=== PATIENT | male | born 1990 | race Caucasian/White ===

== ENCOUNTER → 2020-08-19 13:13 | Outpatient (CLI) | payer OTHER, SELFPAY ==
--- NOTE | ~2020-08-19 | XR_ITS ---
XR knee RT 3V DATE: 08/19/2020 13:27 INDICATION: Right knee pain TECHNIQUE: Standing AP, lateral views. [place] view. COMPARISON: 08/24/2014 right knee FINDINGS: No fracture or dislocation or joint effusion. No periosteal reaction or bone destruction. N o radiopaque intra-articular loose body or chondrocalcinosis. Joint spaces are preserved. IMPRESSION: Negative Reviewed, dictated and finalized at location A. 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
== END ==
PROVIDERS: PCP Family Medicine; Visit Provider Nurse Practitioner Family
DX: M25.569 Pain in unspecified knee (principal)
CPT/HCPCS: 73562

== ENCOUNTER → 2020-08-26 07:30 | Outpatient (CLI) | payer OTHER, SELFPAY ==
--- NOTE | ~2020-08-26 | MR_ITS ---
EXAMINATION: MR knee RT wo con DATE: 08/26/2020 08:12 INDICATION: One month of anterior right knee pain after playing sports. TECHNIQUE: Magnetic resonance imaging (MRI) of the right knee was performed without intravenous contr ast. Sequences included coronal PD-weighted FSE, coronal PD-weighted FS FSE, sagittal T2-weighted FS E, sagittal PD-weighted FS FSE and axial PD weighted fat saturated FSE. COMPARISON: None. FINDINGS: Medial compartment: Medial meniscus is normal. Articular cartilage is normal. Lateral compartment: Lateral meniscus is normal. Articular cartilage is normal. Patellofemoral compartment: Articular cartilage is normal. Ligaments and tendons: Anterior and posterior cruciate ligaments are normal. The medial collateral ligament and fibular meliton ateral ligament complex are normal. The extensor mechanism is normal. The visualized medial and later al hamstring tendons as well as the iliotibial band are normal. Fluid: Physiologic amount of fluid in the joint space. No loose osteochondral bodies identified. Osseous/other: Normal marrow signal. No fracture or pathologic marrow replacing process. There is mild edema in the superficial suprapatellar fat pad which can be seen with fat pad impingement syndrome. IMPRESSION: 1. Mild edema in the superficial suprapatellar fat pad which can be seen with fat pad impingement syn drome. Otherwise normal right knee MRI. Reviewed, dictated and finalized at location B. R DRIVER IMPRESSION: 1. Mild edema in the superficial suprapatellar fat pad which can be seen with f at pad impingement syndrome. Otherwise normal right knee MRI.
== END ==
PROVIDERS: PCP Family Medicine; Visit Provider Nurse Practitioner Family
DX: M25.569 Pain in unspecified knee (principal)
CPT/HCPCS: 73721

== ENCOUNTER 2020-12-26 09:18 | Emergency (ER) | payer OTHER, SELFPAY ==
[2020-12-26 09:30] VITALS: BP 140/78; PULSE 83; RESP 16; TEMP 37.2; O2SAT 99
--- NOTE | 2020-12-26 10:08 | ED.EYEPROB ---
HPI - Eye Problem General Chief complaint: Eye Problems Stated complaint: left eye injury Time Seen by Provider: 12/26/20 10:08 Source: patient, RN notes reviewed and old records reviewed Mode of arrival: ambulatory Limitations: no limitations History of Present Illness HPI Narrative: 30 year old male who [facility] with complaint of pain to his left eye since last 10 p.m when his infant son poked him in his left eye. Patient states that he has some pain ,redness and increase watering to his left eye. He states that it feels like he has a scratch on his eye, has been using OTC saline eye drops. Patient denies acute sharp pain to his left eye but admits to discomfort rates it 6/10 and is continuous. MD chief complaint: eye pain, eye redness and eye injury Onset (ago): day(s) (1) Onset description: sudden Duration: constant Location: left eye Eye Symptoms: burning, redness, pain and other (increase watering of eye) Place: home Related Data Allergies Allergy/AdvReac Type Severity Reaction Status Date / Time cefaclor Allergy Unknown Hives / Verified 12/26/20 09:58 Red Face Cephalosporins Allergy Unknown Rash Verified 12/26/20 09:58 Review of Systems Review of Systems: Narrative: CONSTITUTIONAL: Denies fever, chills, or sweats. EYES: Denies acute visual changes some blurring to left eye,some redness to left sclera with increased watering and discomfort after being poked in his left eye ENT: Denies rhinorrhea, congestion, sore throat, or otalgia. CARDIOVASCULAR: Denies chest pain, palpitations, or edema. RESPIRATORY: Denies cough or dyspnea. GASTROINTESTINAL: Denies abdominal pain, nausea, vomiting, or diarrhea. GENITOURINARY: Denies dysuria or hematuria. SKIN: Denies rash or itching. MUSCULOSKELETAL: Denies back pain, joint pain, or myalgia. NEUROLOGIC: Denies headache, numbness, or weakness. PSYCHIATRIC: Denies anxiety or depression. All systems reviewed & are unremarkable except as noted in HPI and below PMFSH Past Medical History Medical History Acute pharyngitis, unspecified (09/24/17) BMI 25.0-25.9,adult Chronic bilateral low back pain with bilateral sciatica Dietary counseling and surveillance (09/19/16) Dysuria Ganglion, left wrist High risk sexual behavior Juvenile idiopathic scoliosis, thoracolumbar region Other chronic pain Family History Family History Grandparent Diabetes mellitus Father No problems noted. Mother No problems noted. 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 There is no relevant family history pertinent to the presenting complaint Exam Narrative: Exam Narrative: GENERAL: Well-appearing, well-nourished, and in no acute distress. HEAD: Normocephalic, atraumatic. EYES: PERRLA and EOMI. some sclera redness left eye, increased watering and discomfort, denies any sharp pain to his left eye, visual acuity right eye,20/20, left eye 20/50 without corrective lenses, does not wear contacts ENT: Nares clear, no rhinorrhea or epistaxis. Mucous membranes moist. NECK: Supple. no lymphadenopathy CHEST: Clear to auscultation. No respiratory distress. SAO2 99% on room air HEART: Regular rate and rhythm. No murmur heard. Normal peripheral pulses. ABDOMEN: Soft, nontender, nondistended, normal active bowel sounds. EXTREMITIES: Normal range of motion. No edema
== END 2020-12-26 10:33 | disposition home or self-care (01) ==
PROVIDERS: Emergency Provider Registered Nurse; PCP Family Medicine
DX: S05.02XA Injury of conjunctiva and corneal abrasion without foreign body, left eye, initial encounter (principal); W50.0XXA Accidental hit or strike by another person, initial encounter
CPT/HCPCS: 99213; A9270; G0463

== ENCOUNTER → 2021-04-19 08:53 | Outpatient (CLI) | payer OTHER, SELFPAY ==
--- NOTE | ~2021-04-19 | XR_ITS ---
EXAMINATION: XR clavicle LT INDICATION: Left shoulder pain TECHNIQUE: Two views of the left clavicle are obtained. COMPARISON: None available FINDINGS: There is no fracture, dislocation, or subluxation. The bones, soft tissues, and joint space s are normal. IMPRESSION: 1. No acute osseous abnormality. Reviewed, dictated and finalized at location A.
== END ==
PROVIDERS: PCP Family Medicine; Visit Provider Physician Assistant Medical
DX: S49.92XA Unspecified injury of left shoulder and upper arm, initial encounter (principal)
CPT/HCPCS: 73000

== ENCOUNTER → 2021-06-20 15:27 | Outpatient (CLI) | payer OTHER, SELFPAY ==
--- NOTE | ~2021-06-20 | MR_ITS ---
EXAMINATION: MR clavicle LT wo con DATE: 06/20/2021 16:31 INDICATION: Unspecified injury of the left shoulder with medial left clavicular pain post playing [employer] 4 months prior. TECHNIQUE: Magnetic resonance imaging (MRI) of the left clavicle was performed without intravenous co ntrast. A marker was placed over the site of pain. Sequences of the left clavicle included axial, sa gittal and coronal T1-weighted FSE, axial and coronal T2-weighted FS FSE, sagittal fluid sensitive FS E STIR and larger field of view coronal T1-weighted FSE of the bilateral clavicles were obtained. COMPARISON: None. FINDINGS: Bone alignment is normal and symmetric when comparing the bilateral clavicles on the larger field of view coronal images. Acromioclavicular joint and sternoclavicular joint spaces are normal and similar ly appears symmetric. No evident tear of the coracoclavicular ligaments. The visualized portion of th e left glenohumeral joint and glenoid labrum appear normal. Normal marrow signal with no fracture or reactive marrow edema. No bone erosions or periostitis. The musculature at the left shoulder includin g the clavicular insertion of the pectoralis major, deltoid, trapezius and subclavius muscles all rosie ear normal. Normal flow voids are seen in the left subclavian artery and vein which appear of normal caliber. Visualized portions of the left brachial plexus are unremarkable. Surrounding soft tissues a re unremarkable. No abnormal masses or fluid collections identified. No pathologically enlarged lymph adenopathy at the base of the neck, supraclavicular regions, superior mediastinum or bilateral axilla . IMPRESSION: 1. Normal MRI of the left clavicle. No etiology identified for reported pain along the medial aspect of the left clavicle. Reviewed, dictated and finalized at [facility]. 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 Normal MRI of the left clavicle. No etiology identified for reported pain al brday the medial aspect of the left clavicle.
== END ==
PROVIDERS: PCP Family Medicine; Visit Provider Nurse Practitioner Family
DX: S49.92XA Unspecified injury of left shoulder and upper arm, initial encounter (principal); X58.XXXA Exposure to other specified factors, initial encounter
CPT/HCPCS: 73218

== ENCOUNTER 2024-07-17 19:31 | Emergency (ER) | payer OTHER, SELFPAY ==
[2024-07-17 19:54] VITALS: BP 157/101; PULSE 99; RESP 20; TEMP 36.7; O2SAT 100
[2024-07-17] MEDS: ONDANSETRON INJ 4 MG/2 ML VIAL IV PUSH (20:57)
[2024-07-17] MEDS: GLUCAGON FOR INJ 1 MG VIAL 2 MG IV PUSH (20:59)
--- NOTE | 2024-07-17 21:27 | PC.NURSE ---
Patient successfully vomits up food bolus. Patient states he feels relief and no longer has sensation of a blockage. EDP aware.
--- NOTE | 2024-07-17 21:30 | ED_ITS ---
HPI - General Adult General Chief complaint: Unspecified Stated complaint: food bolus Time Seen by Provider: 07/17/24 20:28 History of Present Illness HPI narrative: Patient is a 33-year-old male who presents to the emergency department this evening complaining of an esophageal food bolus. States that he was eating chicken when this happened. Patient states that he has some scarring in his esophagus which causes him to have recurrent food boluses. She has tried to drink some fluids to help pass the food bolus with no success. Patient denies any active chest pain or shortness of breath. No additional symptoms or concerns at this time. Related Data Allergies Allergy/AdvReac Type Severity Reaction Status Date / Time cefaclor Allergy Unknown Hives / Verified 07/17/24 20:03 Red Face Cephalosporins Allergy Unknown Rash Verified 07/17/24 20:03 Review of Systems Review of Systems: All systems are reviewed and are negative unless stated otherwise in the HPI. [facility] Past Medical History Medical History Influenza A History of eustachian tube dysfunction Pre-syncope Adult BMI 26.0-26.9 kg/sq m BMI 27.0-27.9,adult Acute pharyngitis, unspecified (09/24/17) Chronic bilateral low back pain with bilateral sciatica Dietary counseling and surveillance (09/19/16) Dysuria Juvenile idiopathic scoliosis, thoracolumbar region Other chronic pain BMI 25.0-25.9,adult High risk sexual behavior Ganglion, left wrist Surgical History Surgical History H/O endoscopy Family History Family History Grandparent Diabetes mellitus Father Hypertension Mother Migraine Sibling MCL sprain of left knee Other Carcinoma of colon Cerebrovascular accident Social History Social History Smoking status: Never smoker Tobacco type: cigars Second hand tobacco smoke exposure: No Alcohol intake: current Drinks per week: 12 Substance use: never Substance use type: does not use Lack of Transportation: No Lack of Food: Never True Current Housing: I Have Housing Concerned About Future Housing: No Difficulty Paying Gas/Electric Bills: No Difficulty Paying for Meds: No Currently Unemployed: No Education: Associate Degree Difficulty w/ Childcare or Family Care: No Living arrangements: with family Additional living arrangements comments: Occupation/Education: occupation 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 HEENT: PERRL, no rhinorrhea, no post nasal drip, oropharynx clear. Neck: Trachea midline, no JVD, no lymphadenopathy. Cardiovascular: Regular rate and rhythm, no murmurs, rubs or gallops, no peripheral edema. Respiratory: Clear to auscultation bilaterally, no tachypnea, no wheezing, no rhonchi, no rubs, no respiratory distress. Abdomen: Soft, nontender, nondistended, no rebound, no guarding, no peritoneal signs. Musculoskeletal: No joint swelling or deformity, normal muscle tone. Skin: No rashes or petechia, no signs of infection. Psychiatric: Alert and oriented, normal behavior and judgment for situation. Neurological: Alert and oriented to person, place, and time. Follows all commands. No focal deficits, speech is clear and fluent. Course Vital Signs Vital signs: Vital Signs Temperature 98.0 F 07/17/24 19:54 Pulse Rate 99 07/17/24 19:54 Respiratory Rate 20 07/17/24 19:54 Blood Pressure 157/101 H 07/17/24 19:54 Pulse Oximetry 100 07/17/24 19:54 Oxygen Delivery Room Air 07/17/24 19:54 Temperature 98.0 F 07/17/24 19:54 Pulse Rate 99 07/17/24 19:54 Respiratory Rate 20 07/17/24 19:54 Blood Pressure 157/101 H 07/17/24 19:54 Pulse Oximetry 100 07/17/24 19:54 Oxygen Delivery Room Air 07/17/24 19:54 Medical Decision Making MDM Narrative Medical decision making narrative: The patient was evaluated by myself in the emergency department. History is obtained from patient who is an independent historian and physical exam was performed. External medical records were reviewed at this time. IV was established and pertinent tests were ordered. Patient was administered 2 mg of IV glucagon he and 4 mg of IV Zofran. Gluconate made the patient extremely nauseous and patient ended up vomiting the food bolus. Patient states that he feels significantly better. Is able to tolerate p.o. intake without any difficulty. Differential diagnosis considerations include esophageal obstruction, esophagitis, achalasia. Comorbidities impacting this visit include history of recurrent esophageal food boluses. I have evaluated and discussed social determinants of health with the patient that could potentially impact subsequent diagnosis and treatment plans. On repeat assessment of the patient, reevaluation revealed that the patient is doing well and is in no acute distress. Patient symptoms have improved since he arrived to our emergency department. Repeat vital signs were all reviewed and noted to be stable. Differential diagnosis and treatment plan were discussed with the patient at bedside. Patient agrees with discussion and after shared medical decision making agrees with discharge. All questions were answered to the patient's satisfaction. Patient will follow up with his PCP in 3-5 days. Patient was provided with strict return precautions and instructed to return to the emergency department if any new or worsening symptoms develop. The patient was discharged in stable condition. Vital Signs Vital Signs: Vital Signs Temperature 98.0 F 07/17/24 19:54 Pulse Rate 99 07/17/24 19:54 Respiratory Rate 20 07/17/24 19:54 Blood Pressure 157/101 H 07/17/24 19:54 Pulse Oximetry 100 07/17/24 19:54 Oxygen Delivery Room Air 07/17/24 19:54 Temperature 98.0 F 07/17/24 19:54 Pulse Rate 99 07/17/24 19:54 Respiratory Rate 20 07/17/24 19:54 Blood Pressure 157/101 H 07/17/24 19:54 Pulse Oximetry 100 07/17/24 19:54 Oxygen Delivery Room Air 07/17/24 19:54 Discharge Plan Discharge Clinical Impression: Esophageal obstruction due to food impaction Patient Disposition: Home, Self-Care Condition: Improved Instructions: Antibiotic Form Additional Instructions: Please follow-up with your family doctor within the next 3-5 days. Return to the emergency department if any new or worsening symptoms develop. Patient Language: Maori Follow-up/Referrals: Mauricio Granados MD [Primary Care Provider] - 3 Days Time of Disposition: 21:31
[2024-07-17 21:39] VITALS: BP 136/78; PULSE 89; RESP 16; O2SAT 100
== END 2024-07-17 21:39 | disposition home or self-care (01) ==
PROVIDERS: Emergency Provider Emergency Medicine; PCP Family Medicine
DX: T18.128A Food in esophagus causing other injury, initial encounter (principal); W44.F3XA Food entering into or through a natural orifice, initial encounter
CPT/HCPCS: 96374; 96375; 99284; J1610; J2405

== ENCOUNTER 2024-09-22 00:45 | Day surgery (SDC) | payer OTHER, SELFPAY ==
[2024-09-16 12:06] VITALS: BMI 25.8
--- OUTSIDE RECORDS SUMMARY | 2024-09-22 00:47 | XMS_ITS | Clinical Summary ---
Author Organization [facility] Address [address] [place] [address] Phone Care Team Providers Care Manager Division Name Role Phone Mauricio Granados MD Primary Care Provider [phone] Allergies Active Allergy Reactions Criticality Noted Date Comments Cefaclor Hives 05/20/2015 Medications sucralfate (CARAFATE) 1 GM Tablet Take 1 Tab by mouth 4 times daily. Dissolve tablet in 4 ounces of water and swallow before meals and at HS. 60 Tab 3 05/21/2015 Active esomeprazole (NEXIUM) 20 MG CAPSULE DELAYED RELEASE Take 20 mg by mouth as needed. 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 Not on file Not on file Not on file Last Filed Vital Signs Vital Sign Reading Time Taken Comments Blood Pressure 108/78 05/25/2015 9:38 AM PRESS TENDER STAR SIGNAL Pulse 97 05/20/2015 10:56 PM PRESS TENDER [employer]AR SIGNAL Temperature 36 C (96.8 F) 05/25/2015 9:38 AM PRESS TENDER STAR SIGNAL Respiratory Rate 16 05/25/2015 9:38 AM PRESS TENDER STAR SIGNAL Oxygen Saturation 100% 05/25/2015 9:38 AM PRESS TENDER STAR SIGNAL Inhaled Oxygen Concentration - - Weight 74.8 kg (165 lb) 05/24/2015 1:00 PM PRESS TENDER [employer] Height 182.9 cm (6') 05/24/2015 1:00 PM PRESS TENDER STAR SIGNAL Body Mass Index 22.38 05/24/2015 1:00 PM PRESS TENDER STAR SIGNAL Plan of Treatment Health Maintenance Due Date Last Done Comments Hepatitis C Virus (HCV) Screening 1992 TdaP Immunization 1992 Hepatitis B Immunization (1 of 3 - 19+ 3-dose series) 09/07/2011 Influenza Immunization (#1) 2024 SARS-COV-2 Immunization ( - 2023- season) 2024 Respiratory Syncytial Virus (RSV) Immunization (Adult) (1 - 1-dose 75+ series) 09/07/2067 Meningococcal Immunization (ACWY) Aged Out No longer eligible based on patient's age to complete this topic Pneumococcal Immunization Combined Aged Out No longer eligible based on patient's age to complete this topic Rotavirus Immunization Aged Out No lo nger eligible based on patient's age to complete this topic Care Teams Manager Division Relationship Specialty Start Date End Date Mauricio Granados MD [address] [place] [address] PCP - General Family Medicine 05/21/15
--- OUTSIDE RECORDS SUMMARY | 2024-09-22 00:48 | XMS_ITS | Clinical Summary ---
Author Organization [facility] Address [address] [place] [address] Care Team Providers Care Director Of Recruitment Name Role Phone Mauricio Granados MD Primary Care Provider [phone] Source Comments [facility],non-owned Affiliates and Associated Physician Practices is amultiple site organization consisting of ambulatory clinics and hospital sitesin [place], [place], [place] and [place]. This disclosure is being madepursuant to the Care Everywhere program and may not contain all information available regarding this patient. Last updated 18.[facility] [employer] Allergies Active Allergy Reactions Criticality Noted Date Comments Cefaclor Urticaria Medium 09/07/2017 Medications Be aware that medications may not be up to date on this document. Always verify current medications with the patient. No known medications Social History Tobacco Use Types Packs/Day Years Used Date Smoking Tobacco: Never Smokeless Tobacco: Never Sex and Gender Information Value Date Recorded Sex Assigned at Not on file Gender Identity Not on file Sexual Orientation Not on file Last Filed Vital Signs Vital Sign Reading Time Taken Comments Blood Pressure 132/84 09/07/2017 9:30 AM CDT Pulse 82 09/07/2017 9:30 AM CDT Temperature 37.2 C (99 F) 09/07/2017 9:30 AM CDT Respiratory Rate 16 09/07/2017 9:30 AM CDT Oxygen Saturation 97% 09/07/2017 9:30 AM CDT Inhaled Oxygen Concentration - - Weight 77.1 kg (170 lb) 09/07/2017 9:30 AM CDT Height 180.3 cm (5' 11 ) 09/07/2017 9:30 AM CDT Body Mass Index 23.71 09/07/2017 9:30 AM CDT Plan of Treatment Health Maintenance Due Date Last Done Comments HIV SCREENING 09/07/2007 HEPATITIS C SCREENING 09/02/2010 DTAP/TDAP/TD VACCINES (1 - Tdap) 09/07/2011 HEPATITIS B VACCINE (1 of 3 - 19+ 3-dose series) 09/07/2011 COVID-19 VACCINE (1 - 2023-2 5 season) 2024 INFLUENZA VACCINE (#1) 2024 DEPRESSION SCREENING 06/25/2024 ZOSTER VACCINE (1 of 2) 2042 HIB VACCINE Aged Out No longer eligi ble based on patient's age to complete this topic HPV VACCINE Aged Out No longer eligi ble based on patient's age to complete this topic MENINGOCOCCAL (Group B) VACC INE SHARED DECISION-MAKING Aged Out No longer eligibl e based on patient's age to complete this topic MENINGOCOCCAL GROUPS A/C/Y/W VACCINE Aged Out No longer eligible b ased on patient's age to complete this topic PNEUMOCOCCAL VACCINE Aged Out No long er eligible based on patient's age to complete this topic Care Teams Director Of Recruitment Relationship Specialty Start Date End Date Mauricio Granados MD [address] [place] [address] PCP - General Family Medicine 09/07/17
[2024-09-22 12:02] VITALS: BP 133/98; PULSE 77; RESP 20; TEMP 36.4; O2SAT 100; BMI 26.1
[2024-09-22] MEDS: LACTATED RINGERS 1,000 ML 150 ML IV CONT (12:17)
--- NOTE | 2024-09-22 12:33 | WPDANESEPPF ---
Anes - Initial Pre Proc Eval Procedure: Operation Date: 09/22/24 13:00 Proposed Procedures p Esophagogastroduodenoscopy EGD - Evens Bhakta MD Date/Time: 09/22/24 12:33 Surgeon: Evens Bhakta MD Pre Op Diagnosis: disease of esophagus Patient Data Age: 34 Gender: M Height: 1.8 m Weight: 84.9 kg Last Vital Signs Temp 97.5 F L 09/22/24 12:02 Pulse 77 09/22/24 12:02 Resp 20 09/22/24 12:02 BP 133/98 H 09/22/24 12:02 Pulse Ox 100 09/22/24 12:02 O2 Del Method Room Air 09/22/24 12:02 Allergies Allergy/AdvReac Type Severity Reaction Status Date / Time cefaclor Allergy Unknown Hives / Verified 09/22/24 12:01 Red Face Cephalosporins Allergy Unknown Rash Verified 09/22/24 12:01 Home Medications ?Medication ?Instructions ?Recorded ?Confirmed ?Type No Home Medications 07/21/24 09/16/24 History Patient hx anesthesia problems: none Family hx anesthesia problems: none Results Review: All pre-operative results and documents have been reviewed as part of the pre-operative evaluation. COUNT INCLUDES THE [facility] Past Medical History Medical History Influenza A History of eustachian tube dysfunction Pre-syncope Adult BMI 26.0-26.9 kg/sq m BMI 27.0-27.9,adult Acute pharyngitis, unspecified (09/24/17) Chronic bilateral low back pain with bilateral sciatica Dietary counseling and surveillance (09/19/16) Dysuria Juvenile idiopathic scoliosis, thoracolumbar region Other chronic pain BMI 25.0-25.9,adult High risk sexual behavior Ganglion, left wrist Surgical History Surgical History H/O endoscopy Family History Family History Grandparent Diabetes mellitus Father Hypertension Mother Migraine Sibling MCL sprain of left knee Other Carcinoma of colon Cerebrovascular accident Social History Social History Smoking status: Never smoker Tobacco type: cigars Second hand tobacco smoke exposure: No Alcohol intake: current Drinks per week: 6 Substance use: never Substance use type: does not use Do You Feel Safe in your Home?: Yes Lack of Transportation: No Lack of Food: Never True Current Housing: I Have Housing Concerned About Future Housing: No Difficulty Paying Gas/Electric Bills: No Difficulty Paying for Meds: No Currently Unemployed: No Education: Associate Degree Difficulty w/ Childcare or Family Care: No Living arrangements: with family Additional living arrangements comments: with sp Occupation/Education: occupation 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 Gender identity (if verbalized by the patient): Male Sexual Orientation (if Verbalized by the Patient): Straight or Heterosexual Spiritual care concerns: No Agree to blood products: Yes Anes - Eval Final PreProcedure Day of Procedure 09/22/24 12:33 Patient weight: normal Lungs: normal air movement Airway: Mallampati scale class II Neurological: alert and oriented Last oral intake: >/= 8 hours ASA classification: II Emergent: no Anesthetic plan: proceed Anesthesia type and monitoring: general GIVS and standard monitoring Results Review: All pre-operative results and documents have been reviewed as part of the pre-operative evaluation. HTN not on meds currently, ETOH use 10-14 drinks/week. EGD for dysphagia. Informed Consent: The patient's anesthetic plan and its attendant risks and benefits were discussed with the patient/family/POA. Questions were solicited and answers provided to the satisfaction of the patient/family/POA.
--- NOTE | 2024-09-22 13:34 | P.HP_ITS ---
History of Present Illness History of Present Illness Consent: Risks, benefits, and alternatives have been discussed and questions answered. Patient agrees to proceed with procedure. Chief complaint: disease of esophagus Narrative: Dani Santiago is a 34 year old male with remoted h/o food bolus and now intermittent dysphagia, avoiding certain meals which is helping, currently not taking medication. Also had esophageal tear after choking about 2 years ago Review of Systems Review of Systems: All systems reviewed & are unremarkable except as noted in HPI and below PMFSH Past Medical History Medical History (Updated 09/22/24 @ 13:35 by Evens Bhakta MD) Dysphagia Influenza A History of eustachian tube dysfunction Pre-syncope Adult BMI 26.0-26.9 kg/sq m BMI 27.0-27.9,adult Acute pharyngitis, unspecified (09/24/17) Chronic bilateral low back pain with bilateral sciatica Dietary counseling and surveillance (09/19/16) Dysuria Juvenile idiopathic scoliosis, thoracolumbar region Other chronic pain BMI 25.0-25.9,adult High risk sexual behavior Ganglion, left wrist Surgical History Surgical History H/O endoscopy Family History Family History Grandparent Diabetes mellitus Father Hypertension Mother Migraine Sibling MCL sprain of left knee Other Carcinoma of colon Cerebrovascular accident Social History Social History Smoking status: Never smoker Tobacco type: cigars Second hand tobacco smoke exposure: No Alcohol intake: current Drinks per week: 6 Substance use: never Substance use type: does not use Do You Feel Safe in your Home?: Yes Lack of Transportation: No Lack of Food: Never True Current Housing: I Have Housing Concerned About Future Housing: No Difficulty Paying Gas/Electric Bills: No Difficulty Paying for Meds: No Currently Unemployed: No Education: Associate Degree Difficulty w/ Childcare or Family Care: No Living arrangements: with family Additional living arrangements comments: with sp Occupation/Education: occupation 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 Gender identity (if verbalized by the patient): Male Sexual Orientation (if Verbalized by the Patient): Straight or Heterosexual Spiritual care concerns: No Agree to blood products: Yes Meds Home Medications and Allergies Home Medications ?Medication ?Instructions ?Recorded ?Confirmed ?Type No Home Medications 07/21/24 09/16/24 History Allergies Allergy/AdvReac Type Severity Reaction Status Date / Time cefaclor Allergy Unknown Hives / Verified 09/22/24 12:01 Red Face Cephalosporins Allergy Unknown Rash Verified 09/22/24 12:01 Vital Signs Vital Signs - 24 hr 09/22/24 12:02 Temperature 97.5 F L Pulse Rate 77 Respiratory Rate 20 Blood Pressure 133/98 H Pulse Oximetry 100 Oxygen Delivery Room Air Exam Const: General: comfortable and no acute distress HENMT: Face/Nose/Sinus: Normal nares present Eyes: General: appearance normal, both eyes and all related structures Neck: Neck: no JVD Resp: Auscultation: clear to auscultation bilaterally Cardio: Rate: regular rate Rhythm: regular rhythm GI: Inspection: non-distended GI Palp: Yes Soft to palpation Skin: General skin exam: normal color Neuro: General: gait normal Speech: normal speech Extrem: General: normal to inspection Psych: Mental Status: mental status grossly normal Assessment and Plan Assessment and plan (1) Dysphagia: Code(s): R13.10 - Dysphagia, unspecified Status: Acute Assessment and Plan: egd with bx ? EoE
[2024-09-22 13:50] VITALS: BP 104/64; PULSE 79; RESP 18; O2SAT 100
[2024-09-22 14:00] VITALS: BP 121/75; PULSE 74; RESP 18; O2SAT 100
[2024-09-22 14:10] VITALS: BP 133/70; PULSE 75; RESP 17; O2SAT 100
== END 2024-09-22 14:20 | disposition home or self-care (01) ==
PROVIDERS: PCP Family Medicine; Visit Provider Internal Medicine Gastroenterology
PROC: 0DJ08ZZ Inspection of Upper Intestinal Tract, Via Natural or Artificial Opening Endoscopic (ICD-10-PCS; CPT 43239; principal; 2024-09-22 13:00)
DX: K20.90 Esophagitis, unspecified without bleeding (principal); M41.115 Juvenile idiopathic scoliosis, thoracolumbar region; G89.29 Other chronic pain; M54.42 Lumbago with sciatica, left side; M54.41 Lumbago with sciatica, right side; F17.290 Nicotine dependence, other tobacco product, uncomplicated; Z80.0 Family history of malignant neoplasm of digestive organs; Z82.49 Family history of ischemic heart disease and other diseases of the circulatory system
CPT/HCPCS: 43239; 88305; J2003; J2704; J7120

== ENCOUNTER 2024-11-04 12:34 | Emergency (ER) | payer OTHER, SELFPAY ==
[2024-11-04 12:44] VITALS: BP 134/93; PULSE 88; RESP 20; TEMP 37; O2SAT 99
--- OUTSIDE RECORDS SUMMARY | 2024-11-04 12:47 | XMS_ITS | Clinical Summary ---
Author Organization [facility] Address [address] [place] [address] Care Team Providers Care Aircraft Mechanic Structures Name Role Phone Mauricio Granados MD Primary Care Provider Source Comments [facility],non-owned Affiliates and Associated Physician Practices is amultiple site organization consisting of ambulatory clinics and hospital sitesin [place], [place], [place]. This disclosure is being madepursuant to the Care Everywhere program and may not contain all information available regarding this patient. Last updated 18.[facility] Allergies Active Allergy Reactions Criticality Noted Date Comments Cefaclor Urticaria Medium 09/07/2017 Medications * Be aware that medications may not be up to date on this document. Alwaysverify current medications with the patient. No known medications Social History Tobacco Use Types Packs/Day Years Used Date Smoking Tobacco: Never Smokeless Tobacco: Never Sex and Gender Information Value Date Recorded Sex Assigned at Not on file Legal Sex Male 7:27 AM CDT Gender Identity Not on file Sexual [...] VACCINE (1 - 2023-2 5 season) 2024 DEPRESSION SCREENING 06/25/2024 INFLUENZA VACCINE (Season Ended) 2025 ZOSTER VACCINE (1 of 2) 2042 HIB [...] on patient's age to complete this topic Insurance [employer] AETNA SELF PAY NO INSURANCE Member Subscriber Plan / Payer (Ef fective for All Dates) Name:Dani Santiago Member ID:Not on file Relation to Subscriber:Not on file Name:DANI SANTIAGO Subscriber ID:Not on file (Home) Address: [address] [place] [id number] Payer ID:Not on file Group ID:Not on file Type:Self Pay Address: [facility] Address: [facility] [address] [place] [address] Care Teams Aircraft Mechanic Structures Relationship Specialty Start Date End Date Mauricio Granados MD [address] [place] [address] PCP - General Family Medicine 09/07/17
--- OUTSIDE RECORDS SUMMARY | 2024-11-04 12:47 | XMS_ITS | Clinical Summary ---
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 Not on file Not on file Not on file Last Filed Vital Signs Vital Sign Reading Time Taken Comments Blood Pressure 108/78 05/25/2015 9:38 AM HYDRAULIC HAMMER OPERATOR Pulse 97 05/20/2015 10:56 PM HYDRAULIC HAMMER OPERATOR Temperature 36 C (96.8 F) 05/25/2015 9:38 AM HYDRAULIC HAMMER OPERATOR Respiratory Rate 16 05/25/2015 9:38 AM HYDRAULIC HAMMER OPERATOR Oxygen Saturation 100% 05/25/2015 9:38 AM HYDRAULIC HAMMER OPERATOR Inhaled Oxygen Concentration - - Weight 74.8 kg (165 lb) 05/24/2015 1:00 PM HYDRAULIC HAMMER OPERATOR Height 182.9 cm (6') 05/24/2015 1:00 PM HYDRAULIC HAMMER OPERATOR Body Mass Index 22.38 05/24/2015 1:00 PM HYDRAULIC HAMMER OPERATOR Plan of Treatment Health Maintenance Due Date [...] age to complete this topic Care Teams Supervisor Intelligence Analyst Relationship Specialty Start Date End Date Mauricio Granados MD [address] [address] PCP - General Family Medicine 05/21/15
--- NOTE | 2024-11-04 12:48 | ED.EYEPROB ---
HPI - Eye Problem General Chief complaint: Eye Problems Stated complaint: Left eye injury Time Seen by Provider: 11/04/24 12:52 Source: patient Mode of arrival: ambulatory Limitations: no limitations History of Present Illness HPI Narrative: Dani is a 34-year-old male patient presenting to the clinic today with complaints of a left eye injury/pain. He reports Related Data Allergies Allergy/AdvReac Type Severity Reaction Status Date / Time cefaclor Allergy Unknown Hives / Verified 11/04/24 13:00 Red Face Cephalosporins Allergy Unknown Rash Verified 11/04/24 13:00 Review of Systems Review of Systems: Pertinent positives per HPI. Patient denies any fever, chills, rash, headache, visual changes, dizziness, cough, shortness of breath, chest pain, palpitations, nausea, vomiting, diarrhea, constipation, abdominal pain, or any urinary issues. [facility] Past Medical History Medical History Dysphagia Influenza A History of eustachian tube dysfunction Pre-syncope Adult BMI 26.0-26.9 kg/sq m BMI 27.0-27.9,adult Acute pharyngitis, unspecified (09/24/17) Chronic bilateral low back pain with bilateral sciatica Dietary counseling and surveillance (09/19/16) Dysuria Juvenile idiopathic scoliosis, thoracolumbar region Other chronic pain BMI 25.0-25.9,adult High risk sexual behavior Ganglion, left wrist Surgical History Surgical History H/O endoscopy Family History Family History Grandparent Diabetes mellitus Father Hypertension Mother Migraine Sibling MCL sprain of left knee Other Carcinoma of colon Cerebrovascular accident Social History Social History Smoking status: Never smoker Tobacco type: cigars Second hand tobacco smoke exposure: No Alcohol intake: current Drinks per week: 6 Substance use: never Substance use type: does not use Do You Feel Safe in your Home?: Yes Lack of Transportation: No Lack of Food: Never True Current Housing: I Have Housing Concerned About Future Housing: No Difficulty Paying Gas/Electric Bills: No Difficulty Paying for Meds: No Currently Unemployed: No Education: Associate Degree Difficulty w/ Childcare or Family Care: No Living arrangements: with family Additional living arrangements comments: with sp Occupation/Education: occupation 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 There is no relevant family history pertinent to the patient complaint. Exam Narrative: General: Well-developed, well nourished, in no apparent distress Head: Normocephalic, atraumatic Eyes: Pupils equally round and reactive to light bilaterally, EOM intact, right sclera and conjunctive clear, no discharge, left sclera and conjunctiva mildly injected, left eye watery discharge, lids normal Ears: TMs intact and clear, ear canals clear, no drainage, grossly hearing normal. Nose: Nares patent, no discharge, no inflammation, no sinus tenderness. Mouth: Oral pharynx without lesions or masses, good dentition, MMM. Neck: Supple, trachea midline, no enlargement of anterior or posterior cervical nodes, no thyroid masses or goiter palpable. Cardio: Regular rate and rhythm, s1 and s2 normal, no murmur appreciated. Resp: Clear to auscultation bilaterally, no rhonchi, rales, wheezing or rubs Course Course Emergency Course: Portions of this record may have been created with voice recognition software. Level of Care: Express Care Visit Vital Signs Vital signs: Vital Signs Temperature 37.0 C 11/04/24 12:44 Pulse Rate 88 11/04/24 12:44 Respiratory Rate 20 11/04/24 12:44 Blood Pressure 134/93 H 11/04/24 12:44 Pulse Oximetry 99 11/04/24 12:44 Oxygen Delivery Room Air 11/04/24 12:44 Temperature 37.0 C 11/04/24 12:44 Pulse Rate 88 11/04/24 12:44 Respiratory Rate 20 11/04/24 12:44 Blood Pressure 134/93 H 11/04/24 12:44 Pulse Oximetry 99 11/04/24 12:44 Oxygen Delivery Room Air 11/04/24 12:44 Vital signs reviewed Procedures Other Procedure Procedure 1: Other Procedure: Two drops of tetracaine topical anesthetic was instilled with good anesthesia. Fluorescein stain of the left eye was performed. Corneal abrasion was noted at 3 oclock outside of the vision field, NO FB, ulcer or dendritic lesions. Upper lid was everted and no FB or lesions were noted. NO Jason sign. Normal saline irrigation eye solution was performed and the patient tolerated the procedure well, no adverse reaction or complications. Visual acuity noted MDM - Eye Problem MDM Narrative Medical decision making narrative: At the time of visit patient is resting comfortably on the exam table. Patient appears to be nontoxic. Procedures: Wood's lamp exam procedure was performed in the clinic today. Patient has corneal abrasion outside the visual field at 3:00 o'clock Plan: I suspect patient has corneal abrasion to the left eye. Prescription for tobramycin eyedrops was sent to the pharmacy. Supportive measures were discussed with the patient and they voiced understanding discharge instructions and agrees to treatment plan. Return precautions reviewed Differential Diagnosis Differential diagnosis: Likely corneal abrasion, conjunctivitis, acute iritis, hyphema, periorbital cellulitis, subconjunctival hemorrhage, glaucoma, corneal ulcer and ruptured globe Discharge Plan Discharge Clinical Impression: Corneal abrasion Qualifiers: Encounter type: initial encounter Laterality: left Qualified Code(s): S05.02XA - Injury of conjunctiva and corneal abrasion without foreign body, left eye, initial encounter Patient Disposition: Home Condition: Stable Instructions: Antibiotic Form, Corneal Abrasion (ED) Additional Instructions: May apply cool compress to help alleviate pain and swelling Practice good hand washing techniques Avoid touching eyes Instill eyedrops as prescribed-tobramycin May use warm moist washcloth to help remove eye discharge If eyes are matted shut-do not pry eyes open-use a warm moist cloth to loosen matting and wipe matter away from eye May take Tylenol/Motrin as needed for pain or fever May take Benadryl as needed for itching Follow-up with your PCP in 3-5 days if symptoms persist or sooner if they worsen Go to the emergency room if you develop any fever that is not controlled by Tylenol or Motrin, loss of vision, eye pain, increase eye swelling,visual changes, headache, confusion, lethargy, weakness, chest pain, or shortness of breath. Patient Language: Uzbek Prescriptions: New tobramycin 0.3 % drops 1 drp LEFT EYE Q4H 7 Days Qty: 5 0RF No Action omeprazole 20 mg capsule,delayed release(DR/EC) 20 mg PO DAILY Qty: 30 5RF Follow-up/Referrals: Mauricio Granados MD [Primary Care Provider] - Time of Disposition: 13:03 Quality NIHSS Nursing Documentation ED NIHSS nursing documentation: reviewed/agree
[2024-11-04] MEDS: FLUORESCEIN SOD 1 MG/STRIP LEFT EYE (12:57)
[2024-11-04] MEDS: TETRACAINE HCL 0.5% OPHTH SOLN 4 ML BTL LEFT EYE (12:57)
[2024-11-04] MEDS: DACRIOSE EYE IRRIGATION 118 ML BOTTLE LEFT EYE (12:58)
== END 2024-11-04 13:05 | disposition home or self-care (01) ==
PROVIDERS: Emergency Provider Nurse Practitioner Family; PCP Family Medicine
DX: S05.02XA Injury of conjunctiva and corneal abrasion without foreign body, left eye, initial encounter (principal); X58.XXXA Exposure to other specified factors, initial encounter; M41.115 Juvenile idiopathic scoliosis, thoracolumbar region
CPT/HCPCS: 99213; A9270; G0463